=== PATIENT | female | born 1975 | race Caucasian/White ===

== ENCOUNTER 2016-08-06 00:26 | Emergency (ER) | payer BC ==
[~2016-08-06] VITALS: Ht 180.3 cm; Wt 86.2 kg
[2016-08-06 00:48] VITALS: BP 164/88
[2016-08-06] MEDS ORDERED: CYCL5TAB PO (01:12)
--- NOTE | 2016-08-06 01:12 | PHYS DOC ---
Past Medical History Past Medical History: Hypothyroid Additional Past Medical Histor: Chronic back pain Past Surgical History: Other Additional Past Surgical Histo: thyroid Alcohol Use: None Drug Use: None Adult General Chief Complaint Chief Complaint: BACK PAIN OR INJURY HPI HPI Patient is a 41 year old female who presents with of her and lower back pain bilaterally that is achy, worse with movement, started after moving things at her home today. She denies numbness, tingling, weakness, cough, dyspnea, fever or chills, nausea or vomiting, abdominal pain, saddle anesthesia, bowel or bladder dysfunction. He denies injury. Review of Systems Review of Systems Constitutional: Denies fever or chills [] Eyes: Denies change in visual acuity, redness, or eye pain [] HENT: Denies nasal congestion or sore throat [] Respiratory: Denies cough or shortness of breath [] Cardiovascular: No additional information not addressed in HPI [] GI: Denies abdominal pain, nausea, vomiting, bloody stools or diarrhea [] : Denies dysuria or hematuria [] Musculoskeletal: Denies joint pain [] Integument: Denies rash or skin lesions [] Neurologic: Denies headache, focal weakness or sensory changes [] Endocrine: Denies polyuria or polydipsia [] Current Medications Current Medications Current Medications Medications (Trade) Dose Ordered Sig/Berna Start Time Stop Time Status Last Admin Dose Admin Cyclobenzaprine HCl (Flexeril) 10 mg 1X ONCE 08/06/16 01:30 08/06/16 01:30 DC 08/06/16 01:05 10 MG Allergies Allergies Allergies Coded Allergies Type Severity Reaction Last Updated Verified No Known Drug Allergies 08/06/16 No Physical Exam Physical Exam Constitutional: Well developed, well nourished, no acute distress, non-toxic appearance. [] HENT: Normocephalic, atraumatic, bilateral external ears normal, oropharynx moist, nose normal. [] Eyes: PERRLA, EOMI. [] Neck: Normal range of motion, supple. [] Cardiovascular:Heart rate regular rhythm [] Lungs & Thorax: Bilateral breath sounds clear to auscultation [] Abdomen: Bowel sounds normal, soft, no tenderness. [] Skin: Warm, dry, no erythema, no rash. [] Back: No midline spinal tenderness, no CVA tenderness. Has tenderness along paraspinal muscles along thoracic and lumbar back [] Extremities: No tenderness, ROM intact, no edema. [] Neurologic: Alert and oriented X 3, normal motor function, normal sensory function, no focal deficits noted. [] Psychologic: Affect normal, judgement normal, mood normal. [] Current Patient Data Vital Signs Vital Signs Date Time Temp Pulse Resp B/P (MAP) Pulse Ox O2 Delivery O2 Flow Rate FiO2 08/06/16 00:48 97.8 108 18 98 Room Air 97.8 Course & Med Decision Making Course & Med Decision Making Discussed supportive care. Return precautions given. She understands and agrees plan. Dragon Disclaimer Dragon Disclaimer This electronic medical record was generated, in whole or in part, using a voice recognition dictation system. Departure Departure Impression: Primary Impression: Back pain Disposition: HOME, SELF-CARE Condition: STABLE Patient Instructions: Back Pain, Adult, [id number] Additional Instructions: Take Tylenol or ibuprofen as needed for pain. Take cyclobenzaprine as a for severe pain or muscle spasm. Do not drink, drive or operate heavy machinery after taking cyclobenzaprine as it may make you sleepy. Follow-up with your primary care doctor. Return for any concerns. Scripts Cyclobenzaprine Hcl (CYCLOBENZAPRINE HCL) 5 Mg Tablet 1 TAB PO TID Y for MUSCLE SPASMS, #10 TAB Prov: Magali DEAN MD 08/06/16 Problem Qualifiers Primary Impression: Back pain Back pain location: back pain in unspecified location Chronicity: acute Back pain laterality: bilateral Qualified Codes: M54.9 - Dorsalgia, unspecified Magali DEAN MD Aug 06, 2016 01:12
[2016-08-06] MEDS ORDERED: CYCLOBENZAPRINE 10 MG TABLET. PO ONE (01:30)
== END 2016-08-06 01:15 | disposition home or self-care (01) ==
LOC: ER 00:26
DX: M54.5 Low back pain (principal); G89.29 Other chronic pain; E03.9 Hypothyroidism, unspecified
CPT/HCPCS: 99283